=== PATIENT | female | born 1985 | race African-American/Black ===

== ENCOUNTER 2020-01-12 10:01 | Emergency (ER) | payer OTHER ==
[~2020-01-12] VITALS: Ht 162.6 cm; Wt 109.8 kg
[2020-01-12 10:13] VITALS: BP 151/91
[2020-01-12] MEDS ORDERED: SUPER THERAVIT1 EACH PO (10:18)
[2020-01-12] MEDS ORDERED: MS MEDICATION (10:18)
[2020-01-12] MEDS ORDERED: TUMERIC (10:18)
== END 2020-01-12 12:13 | disposition home or self-care (01) ==
LOC: M.ERS 10:01
DX: R51.9 Headache, unspecified (principal); Z20.828 Contact with and (suspected) exposure to other viral communicable diseases; G35 Multiple sclerosis